=== PATIENT | male | born 1955 | race Caucasian/White ===

== ENCOUNTER → 2020-03-23 | Outpatient (CLI) | payer OTHER ==
[~2020-03-23] MED LIST: ALDACTONE25 MG PO; COREG 25MG TAB25 MG PO; GLYBURIDE PO; HYDROCODON-ACE1 EAC4 PO; NORVASC10 MG PO; ZESTRIL40 MG PO; ZOCOR10 MG PO
== END ==
LOC: KOH-I 08:17 → HEART 5 08:17
DX: R01.1 Cardiac murmur, unspecified (principal); I73.9 Peripheral vascular disease, unspecified
CPT/HCPCS: 93306; 93925

== ENCOUNTER 2020-08-30 09:13 | Emergency (ER) | payer OTHER ==
[~2020-08-30 09:13] MED LIST changes: -HYDROCODON-ACE1 EAC4 PO
[2020-08-30 11:05] LABS: HEMOGLOBIN 9.9 gm/dl (14.0-17.5); RED BLOOD COUNT 3.3 M/UL (4.20-5.50); WHITE BLOOD COUNT 7.7 K/UL (4.5-11.0)
[2020-08-30 11:29] LABS: BUN/CREATININE RATIO 13 (0-10)
[2020-08-30] MEDS ORDERED: HYDROCODON-ACE1 EAC4 PO (13:26)
== END 2020-08-30 14:00 | disposition home or self-care (01) ==
LOC: ER1 09:13
PROVIDERS: Family Medicine
DX: M54.5 Low back pain (principal); M25.512 Pain in left shoulder; M25.511 Pain in right shoulder; N18.9 Chronic kidney disease, unspecified; E11.22 Type 2 diabetes mellitus with diabetic chronic kidney disease; Z79.01 Long term (current) use of anticoagulants; Z79.899 Other long term (current) drug therapy
CPT/HCPCS: 80053; 81001; 82550; 82553; 83605; 83735; 83874; 84439; 84443; 84484; 85025; 86140; 93005; 99283

== ENCOUNTER → 2020-08-31 | Outpatient (CLI) | payer OTHER ==
[~2020-08-31] MED LIST changes: +HYDROCODON-ACE1 EAC4 PO
[2020-08-31 12:06] LABS: HEMOGLOBIN 10.2 gm/dl (14.0-17.5); RED BLOOD COUNT 3.37 M/UL (4.20-5.50); WHITE BLOOD COUNT 7.7 K/UL (4.5-11.0)
== END ==
LOC: OPSV 11:00
PROVIDERS: Internal Medicine Nephrology
DX: D63.1 Anemia in chronic kidney disease (principal); N18.5 Chronic kidney disease, stage 5
CPT/HCPCS: 36415; 80048; 82728; 83540; 83550; 85027

== ENCOUNTER → 2020-09-09 | Outpatient (CLI) | payer OTHER ==
[2020-09-09 11:32] LABS: HEMOGLOBIN 9.7 gm/dl (14.0-17.5); RED BLOOD COUNT 3.24 M/UL (4.20-5.50)
== END ==
LOC: LAB 10:26
PROVIDERS: Internal Medicine Nephrology
DX: N18.5 Chronic kidney disease, stage 5 (principal); D63.1 Anemia in chronic kidney disease; N25.81 Secondary hyperparathyroidism of renal origin
CPT/HCPCS: 36415; 80069; 83970; 85027

== ENCOUNTER → 2020-09-17 | Outpatient (CLI) | payer OTHER ==
[~2020-09-17] VITALS: Ht 175.3 cm; Wt 84.4 kg
[2020-09-17 11:42] LABS: HEMOGLOBIN 9.8 gm/dl (14.0-17.5); RED BLOOD COUNT 3.22 M/UL (4.20-5.50); WHITE BLOOD COUNT 7.4 K/UL (4.5-11.0)
== END ==
LOC: OPSV 11:00
PROVIDERS: Internal Medicine Nephrology
DX: N18.5 Chronic kidney disease, stage 5 (principal); D63.1 Anemia in chronic kidney disease
CPT/HCPCS: 36415; 85027; 96372; Q5106

== ENCOUNTER → 2020-10-05 | Outpatient (CLI) | payer OTHER ==
[2020-10-05 11:54] LABS: HEMOGLOBIN 10.7 gm/dl (14.0-17.5); RED BLOOD COUNT 3.6 M/UL (4.20-5.50); WHITE BLOOD COUNT 6.5 K/UL (4.5-11.0)
== END ==
LOC: OPSV 11:00
PROVIDERS: Internal Medicine Nephrology
DX: I12.0 Hypertensive chronic kidney disease with stage 5 chronic kidney disease or end stage renal disease (principal); N18.5 Chronic kidney disease, stage 5; D63.1 Anemia in chronic kidney disease; N25.81 Secondary hyperparathyroidism of renal origin
CPT/HCPCS: 36415; 80048; 82728; 83540; 83550; 85027

== ENCOUNTER → 2020-10-19 | Outpatient (CLI) | payer OTHER ==
[2020-10-19 11:30] LABS: HEMOGLOBIN 10.5 gm/dl (14.0-17.5); RED BLOOD COUNT 3.47 M/UL (4.20-5.50)
== END ==
LOC: OPSV 10:55
PROVIDERS: Internal Medicine Nephrology
DX: N18.5 Chronic kidney disease, stage 5 (principal)
CPT/HCPCS: 36415; 85027

== ENCOUNTER → 2020-11-04 | Outpatient (CLI) | payer OTHER ==
[2020-11-04 11:33] LABS: HEMOGLOBIN 10.2 gm/dl (14.0-17.5); RED BLOOD COUNT 3.52 M/UL (4.20-5.50); WHITE BLOOD COUNT 6.1 K/UL (4.5-11.0)
== END ==
LOC: OPSV 10:39
PROVIDERS: Internal Medicine Nephrology
DX: I12.0 Hypertensive chronic kidney disease with stage 5 chronic kidney disease or end stage renal disease (principal); N18.5 Chronic kidney disease, stage 5; D63.1 Anemia in chronic kidney disease; N25.81 Secondary hyperparathyroidism of renal origin
CPT/HCPCS: 36415; 80048; 82728; 83540; 83550; 85027

== ENCOUNTER 2020-11-12 11:35 | Emergency (ER) | payer OTHER ==
[~2020-11-12] VITALS: Ht 172.7 cm; Wt 86.2 kg
== END 2020-11-12 14:45 | disposition home or self-care (01) ==
LOC: ER1 11:35
DX: Z23 Encounter for immunization (principal); U07.1 COVID-19
CPT/HCPCS: 99283; M0243

== ENCOUNTER → 2020-12-18 | Outpatient (CLI) | payer OTHER ==
[2020-12-18 12:59] LABS: HEMOGLOBIN 10.1 gm/dl (14.0-17.5); RED BLOOD COUNT 3.28 M/UL (4.20-5.50)
== END ==
LOC: OPSV 12:39
PROVIDERS: Internal Medicine Nephrology
DX: N18.5 Chronic kidney disease, stage 5 (principal)
CPT/HCPCS: 36415; 85027

== ENCOUNTER → 2021-01-08 | Outpatient (CLI) | payer OTHER ==
[2021-01-08 10:49] LABS: RED BLOOD COUNT 3.39 M/UL (4.20-5.50); WHITE BLOOD COUNT 6.5 K/UL (4.5-11.0)
== END ==
LOC: OPSV 09:52
PROVIDERS: Internal Medicine Nephrology
DX: I12.0 Hypertensive chronic kidney disease with stage 5 chronic kidney disease or end stage renal disease (principal); N18.5 Chronic kidney disease, stage 5; N25.81 Secondary hyperparathyroidism of renal origin; D63.1 Anemia in chronic kidney disease
CPT/HCPCS: 36415; 80069; 82728; 83540; 83550; 85027

== ENCOUNTER → 2021-01-27 | Outpatient (CLI) | payer OTHER ==
[2021-01-27 12:06] LABS: HEMOGLOBIN 10.4 gm/dl (14.0-17.5); RED BLOOD COUNT 3.43 M/UL (4.20-5.50)
== END ==
LOC: LAB 11:03
PROVIDERS: Internal Medicine Nephrology
DX: Z48.22 Encounter for aftercare following kidney transplant (principal); Z94.0 Kidney transplant status
CPT/HCPCS: 36415; 80069; 83735; 85025

== ENCOUNTER → 2021-02-15 | Outpatient (CLI) | payer OTHER ==
[2021-02-15 09:40] LABS: HEMOGLOBIN 10.9 gm/dl (14.0-17.5); RED BLOOD COUNT 3.5 M/UL (4.20-5.50); WHITE BLOOD COUNT 6.8 K/UL (4.5-11.0)
== END ==
LOC: LAB 09:04
PROVIDERS: Internal Medicine Nephrology
DX: Z48.22 Encounter for aftercare following kidney transplant (principal)
CPT/HCPCS: 36415; 80069; 80197; 83735; 85025

== ENCOUNTER → 2021-02-22 | Outpatient (CLI) | payer OTHER ==
[2021-02-22 10:22] LABS: HEMOGLOBIN 11.1 gm/dl (14.0-17.5); RED BLOOD COUNT 3.61 M/UL (4.20-5.50); WHITE BLOOD COUNT 7.9 K/UL (4.5-11.0)
[2021-02-23 08:14] LABS: CALCIUM, SERUM 8.9 mg/dL (8.6-10.2); CREATININE, SERUM 1.42 mg/dL (0.76-1.27); MAGNESIUM 1.7 mg/dL (1.6-2.3); POTASSIUM, SERUM 4.1 mmol/L (3.5-5.2)
== END ==
LOC: LAB 09:19
PROVIDERS: Internal Medicine Nephrology
DX: Z48.22 Encounter for aftercare following kidney transplant (principal); Z94.0 Kidney transplant status; Z79.899 Other long term (current) drug therapy
CPT/HCPCS: 36415; 80069; 83735; 85025

== ENCOUNTER → 2021-03-22 | Outpatient (CLI) | payer OTHER ==
[2021-03-22 10:05] LABS: HEMOGLOBIN 10.8 gm/dl (14.0-17.5); RED BLOOD COUNT 3.49 M/UL (4.20-5.50); WHITE BLOOD COUNT 7.4 K/UL (4.5-11.0)
== END ==
LOC: LAB 09:42
PROVIDERS: Internal Medicine Nephrology
DX: Z48.22 Encounter for aftercare following kidney transplant (principal); Z79.899 Other long term (current) drug therapy
CPT/HCPCS: 36415; 80069; 83735; 85025

== ENCOUNTER → 2021-06-29 | Outpatient (CLI) | payer OTHER ==
[~2021-06-29] VITALS: Ht 175.3 cm; Wt 84.4 kg
== END ==
LOC: OPSV 09:00
DX: Z48.22 Encounter for aftercare following kidney transplant (principal); Z94.0 Kidney transplant status; B34.9 Viral infection, unspecified
CPT/HCPCS: 96365; 96366; J1568

== ENCOUNTER → 2021-07-06 | Outpatient (CLI) | payer OTHER ==
[~2021-07-06] VITALS: Ht 175.3 cm; Wt 84.4 kg
== END ==
LOC: OPSV 08:57
DX: Z48.22 Encounter for aftercare following kidney transplant (principal); Z94.0 Kidney transplant status; B34.9 Viral infection, unspecified
CPT/HCPCS: 96365; 96366; J1568

== ENCOUNTER → 2021-07-13 | Outpatient (CLI) | payer OTHER ==
[~2021-07-13] VITALS: Ht 175.3 cm; Wt 84.4 kg
== END ==
LOC: OPSV 09:00
DX: B34.9 Viral infection, unspecified (principal); Z94.0 Kidney transplant status
CPT/HCPCS: 96365; 96366; J1568

== ENCOUNTER → 2021-07-20 | Outpatient (CLI) | payer OTHER ==
[~2021-07-20] VITALS: Ht 175.3 cm; Wt 84.4 kg
== END ==
LOC: OPSV 08:52
DX: Z48.22 Encounter for aftercare following kidney transplant (principal); Z94.0 Kidney transplant status; B34.9 Viral infection, unspecified; Z79.899 Other long term (current) drug therapy
CPT/HCPCS: 96365; 96366; J1568

== ENCOUNTER → 2021-07-27 | Outpatient (CLI) | payer OTHER ==
[~2021-07-27] VITALS: Ht 175.3 cm; Wt 84.4 kg
== END ==
LOC: OPSV 09:00
DX: Z94.0 Kidney transplant status (principal); B34.9 Viral infection, unspecified
CPT/HCPCS: 96365; 96366; J1568

== ENCOUNTER → 2021-08-03 | Outpatient (CLI) | payer OTHER ==
[~2021-08-03] VITALS: Ht 175.3 cm; Wt 84.4 kg
== END ==
LOC: OPSV 09:00
DX: B34.9 Viral infection, unspecified (principal); Z94.0 Kidney transplant status
CPT/HCPCS: 96365; 96366; J1568

== ENCOUNTER → 2021-08-11 | Outpatient (CLI) | payer OTHER ==
[~2021-08-11] VITALS: Ht 175.3 cm; Wt 84.4 kg
== END ==
LOC: OPSV 08-10 09:00
DX: B34.9 Viral infection, unspecified (principal); Z94.0 Kidney transplant status
CPT/HCPCS: 96365; 96366; J1568

== ENCOUNTER → 2021-08-20 | Outpatient (CLI) | payer OTHER ==
[~2021-08-20] VITALS: Ht 175.3 cm; Wt 84.4 kg
== END ==
LOC: OPSV 08:50
DX: B34.9 Viral infection, unspecified (principal); Z94.0 Kidney transplant status
CPT/HCPCS: 96365; 96366; J1568

== ENCOUNTER → 2021-08-25 | Outpatient (CLI) | payer OTHER ==
[~2021-08-25] VITALS: Ht 175.3 cm; Wt 84.4 kg
== END ==
LOC: OPSV 08:32
DX: B34.9 Viral infection, unspecified (principal); Z94.0 Kidney transplant status
CPT/HCPCS: 96365; 96366; J1568

== ENCOUNTER → 2021-09-01 | Outpatient (CLI) | payer OTHER ==
[~2021-09-01] VITALS: Ht 175.3 cm; Wt 84.4 kg
== END ==
LOC: OPSV 08:28
DX: B34.9 Viral infection, unspecified (principal); Z94.0 Kidney transplant status
CPT/HCPCS: 96365; 96366; J1568

== ENCOUNTER → 2021-09-08 | Outpatient (CLI) | payer OTHER ==
[~2021-09-08] VITALS: Ht 175.3 cm; Wt 84.4 kg
== END ==
LOC: OPSV 08:19
DX: B34.9 Viral infection, unspecified (principal); Z94.0 Kidney transplant status
CPT/HCPCS: 96365; 96366; J1568

== ENCOUNTER → 2021-09-15 | Outpatient (CLI) | payer OTHER ==
[~2021-09-15] VITALS: Ht 175.3 cm; Wt 84.4 kg
== END ==
LOC: OPSV 09:00
DX: Z48.22 Encounter for aftercare following kidney transplant (principal); Z94.0 Kidney transplant status; B34.9 Viral infection, unspecified
CPT/HCPCS: 96365; 96366; J1568

== ENCOUNTER → 2021-09-22 | Outpatient (CLI) | payer OTHER ==
[~2021-09-22] VITALS: Ht 175.3 cm; Wt 84.4 kg
== END ==
LOC: OPSV 08:44
DX: Z48.22 Encounter for aftercare following kidney transplant (principal); B34.9 Viral infection, unspecified
CPT/HCPCS: 96365; 96366; J1568

== ENCOUNTER → 2021-09-29 | Outpatient (CLI) | payer OTHER ==
[~2021-09-29] VITALS: Ht 175.3 cm; Wt 84.4 kg
== END ==
LOC: OPSV 08:24
DX: B34.9 Viral infection, unspecified (principal); Z94.0 Kidney transplant status
CPT/HCPCS: 96365; 96366; J1568

== ENCOUNTER → 2021-10-08 | Outpatient (CLI) | payer OTHER ==
[~2021-10-08] VITALS: Ht 175.3 cm; Wt 84.4 kg
[2021-10-11 15:11] LABS: BK QUANTITATION PCR 2380 IU/mL (Negative); LOG10 BK QN PCR 3.377 (.)
== END ==
LOC: OPSV 07:08
PROVIDERS: Internal Medicine
DX: Z48.22 Encounter for aftercare following kidney transplant (principal); Z79.899 Other long term (current) drug therapy; Z94.0 Kidney transplant status
CPT/HCPCS: 87799; 96365; 96366; J1568